=== PATIENT | female | born 1950 | race Caucasian/White ===

== ENCOUNTER → 2018-03-22 08:56 | Outpatient (CLI) | payer MEDICARE, OTHER ==
[2013-09-30 08:13] VITALS: BMI 30.1
[~2018-03-22 08:56] MED LIST: ASPIRIN 81 MG E81 MG PO; CENTRUM SILVER1 TA2 PO; CRESTOR20 MG PO; EFFIENT5 MG PO; NIASPAN500 MG PO; NITROQUICK0.4 MG SL; NORCO 10/325 TA1 TA1 PO; PERCOCET 10/3251 TA1 PO; PRAVACHOL80 MG PO; ULTRAM50 MG PO
== END | disposition home or self-care (01) ==
LOC: D.MRI 08:56
DX: R10.2 Pelvic and perineal pain (principal)

== ENCOUNTER 2018-12-21 19:00 | Outpatient (CLI) | payer MEDICARE, OTHER ==
[2013-09-30 08:13] VITALS: BMI 30.1
== END 2018-12-21 23:59 | disposition home or self-care (01) ==
LOC: D.MAMMO 19:00
PROVIDERS: ATTEND Family Medicine
DX: Z12.31 Encounter for screening mammogram for malignant neoplasm of breast (principal)

== ENCOUNTER → 2019-01-22 17:11 | Outpatient (CLI) | payer MEDICARE ==
[2013-09-30 08:13] VITALS: BMI 30.1
== END | disposition home or self-care (01) ==
LOC: D.MAMMO 01-16 15:00
PROVIDERS: ATTEND Family Medicine
DX: N63.24 Unspecified lump in the left breast, lower inner quadrant (principal)

== ENCOUNTER → 2019-12-18 13:51 | Outpatient (CLI) | payer MEDICARE, BC ==
[2013-09-30 08:13] VITALS: BMI 30.1
== END | disposition home or self-care (01) ==
LOC: D.CT 12-17 09:30
PROVIDERS: ATTEND Family Medicine
DX: R06.00 Dyspnea, unspecified (principal)

== ENCOUNTER 2020-04-08 12:51 | Emergency (ER) | payer MEDICARE, BC ==
[~2020-04-08] VITALS: Ht 172.7 cm; Wt 90.9 kg
[2020-04-08 12:58] VITALS: BP 151/95; Ht 172.7 cm; Wt 90.9 kg
[2020-04-08] MEDS ORDERED: LIPITOR20 MG PO (12:59)
[2020-04-08] MEDS ORDERED: IBUPROFEN800 MG PO (13:55)
== END 2020-04-08 14:10 | disposition home or self-care (01) ==
LOC: D.ER 12:51
DX: S62.101A Fracture of unspecified carpal bone, right wrist, initial encounter for closed fracture (principal); M25.531 Pain in right wrist; X58.XXXA Exposure to other specified factors, initial encounter

== ENCOUNTER → 2020-04-13 16:01 | Outpatient (CLI) | payer MEDICARE, BC ==
[2020-04-08 12:58] VITALS: BMI 30.4
[~2020-04-13 16:01] MED LIST changes: +IBUPROFEN800 MG PO; +LIPITOR20 MG PO
== END | disposition home or self-care (01) ==
LOC: D.MRI 16:01
PROVIDERS: ATTEND Clinical Nurse Specialist Family Health
DX: S63.391A Traumatic rupture of other ligament of right wrist, initial encounter (principal)

== ENCOUNTER 2020-06-10 10:30 | Outpatient (CLI) | payer MEDICARE, BC ==
[2020-04-08 12:58] VITALS: BMI 30.4
== END 2020-06-10 23:59 | disposition home or self-care (01) ==
LOC: D.MAMMO 10:30
PROVIDERS: ATTEND Family Medicine
DX: Z12.31 Encounter for screening mammogram for malignant neoplasm of breast (principal)

== ENCOUNTER → 2020-07-06 08:02 | Outpatient (CLI) | payer MEDICARE, BC ==
[2020-04-08 12:58] VITALS: BMI 30.4
== END | disposition home or self-care (01) ==
LOC: D.HCCARDIO 08:02
PROVIDERS: ATTEND Internal Medicine Cardiovascular Disease
DX: I25.10 Atherosclerotic heart disease of native coronary artery without angina pectoris (principal)